=== PATIENT | male | born 1990 | race Caucasian/White ===

== ENCOUNTER 2019-05-01 10:53 | Emergency (ER) | payer OTHER, SELFPAY ==
[2019-05-01 10:55] VITALS: BP 138/75; PULSE 60; RESP 14; TEMP 36.9; O2SAT 98
--- NOTE | 2019-05-01 11:26 | ED_ITS ---
HPI - Extremity Injury (Upper) <PIERRE Treadwell - Last Filed: 05/01/19 12:01> General Chief Complaint: Extremity Injury, Upper Stated Complaint: broken collar bone Time Seen by Provider: 05/01/19 11:05 Source: patient Mode of arrival: Ambulatory Limitations: no limitations History of Present Illness HPI narrative: This is a 28-year-old male, nonsmoker, who presents to ED with significant other with known right clavicle fracture per x-ray test that was done at [facility] yesterday. Reports he was riding snowboard yesterday at [place] and when he turned 180 degree his snow boarder as got caught and fell forward and landed on his right shoulder. Patient denies any other injury including head or neck. Patient right dominant hand. He reports occasional numbness to whole right hand but denies decreased strength to right upper arm. Patient denies difficulty breathing at this time. He has been using sling on affected arm that was provided from [facility] and pain is well managed with [place] and Advil. Patient is here for consultation to orthopedists since he was informed that he needs a surgery last night. Related Data Home Medications Medication Instructions Recorded Confirmed hydrocodone-acetaminophen [[place]] 1 tab PO Q4-6H PRN 05/01/19 05/01/19 ibuprofen 200 mg PO PRN PRN 05/01/19 05/01/19 multivitamin 1 tab PO DAILY 05/01/19 05/01/19 Allergies Allergy/AdvReac Type Severity Reaction Status Date / Time No Known Drug Allergies Allergy Verified 05/01/19 11:02 Review of Systems <PIERRE Treadwell - Last Filed: 05/01/19 12:01> Review of Systems Narrative: General: Denies fever, chills, fatigue, malaise, sweats. HEENT: Denies sinus pain, ear pain, sore throat, difficulty swallowing, dizziness. Respiratory: Denies dyspnea, cough, wheezing, hemoptysis, sputum. Cardiovascular: Denies chest pain, palpitations, orthopnea, edema. Gastrointestinal: Denies nausea, vomiting, abdominal pain, diarrhea, constipation, melena. : Denies dysuria, frequency, incontinence, hematuria, urinary retention. Musculoskeletal: See HPI Skin: Denies rash, skin lesions, or other. Neurologic: Denies weakness, headache, numbness, change in speech, confusion, seizures, incoordination. Psychiatric: No concerning psychosocial issues. 12-point review of systems is negative except for those stated above. Patient History <PIERRE Treadwell - Last Filed: 05/01/19 12:01> Medical History No significant past medical history (Acute) Surgical History No pertinent past surgical history (Acute) Social History Smoking Status: Never smoker Smoking Status: Never smoker alcohol intake frequency: 0-2 drinks per day Substance Use Type: does not use Exam <PIERRE Treadwell - Last Filed: 05/01/19 12:01> Narrative Exam Narrative: General appearance: well developed, well nourished, in no acute distress. Head: normocephalic, atraumatic, no scalp lesions, non-tender. ENT: Hearing grossly intact. Nose without bleeding, purulent discharge or deviation. Mucous membrane moist, no mucosal lesion. Throat without erythema, tonsillar hypertrophy or exudate. Uvula in midline, airway patent. Neck/Thyroid: neck supple, full range of motion, no visible masses or meningeal signs. No JVD, non-tender without lymphadenopathy. Skin: no suspicious rashes, lesions over visible areas. Warm and dry and appropriate color for ethnicity. Heart: no clubbing, no cyanosis, no edema. S1 and S2 normal. RRR w/o murmurs, clicks, or bruits. Lungs: Breathing even and unlabored. No stridor. No accessory muscles used. Able to speak in full sentences. Chest: normal shape and expansion. Abdomen: non-obese, non-distended. Neurologic: alert and oriented. Cognitive exam, MARBLE INSTALLER and PNS grossly intact on informal exam. Psych: good eye contact, normal affect. Initial Vital Signs Initial Vital Signs: Vital Signs Temperature 98.5 F 05/01/19 10:55 Pulse Rate 60 05/01/19 10:55 Respiratory Rate 14 05/01/19 10:55 Blood Pressure 138/75 05/01/19 10:55 Pulse Oximetry 98 05/01/19 10:55 Extrem Right upper extremity: shoulder/upper arm Details: abnormal to inspection Details: clavicle deformity (edema), tenderness Location: of the clavicle and swelling Location: of the clavicle; no abrasions, no lacerations, no ecchymosis and no unusual warmth and hand Left upper extremity: normal to inspection, full ROM, normal capillary refill and hand Details: normal to inspection, neuromotor exam normal Details: wrist extension normal, thumb opposition normal, thumb IP flexion normal, thumb ADduction normal and fingers 2-5 ABduction normal, neurosensory exam normal Details: radial nerve sensory function normal, vascular exam Details: radial pulse present, normal ROM of fingers and no swelling <Mumtaz Davila MD - Last Filed: 05/02/19 08:19> Initial Vital Signs Initial Vital Signs: Vital Signs Temperature 98.5 F 05/01/19 10:55 Pulse Rate 60 05/01/19 10:55 Respiratory Rate 14 05/01/19 10:55 Blood Pressure 138/75 05/01/19 10:55 Pulse Oximetry 98 05/01/19 10:55 Scores <PIERRE Treadwell - Last Filed: 05/01/19 12:01> GCS [place] coma scale eye opening: Spontaneous Dara coma scale verbal response: Orientated Dara coma scale motor response: Obey commands [place] coma scale total score: 15 Course <PIERRE Treadwell - Last Filed: 05/01/19 12:01> Vital Signs Vital signs: Vital Signs - 8 hr 05/01/19 10:55 Temperature 98.5 F Pulse Rate 60 Respiratory Rate 14 Blood Pressure 138/75 Pulse Oximetry 98 <Mumtaz Davila MD - Last Filed: 05/02/19 08:19> Vital Signs Vital signs: Vital Signs - 8 hr 05/01/19 10:55 Temperature 98.5 F Pulse Rate 60 Respiratory Rate 14 Blood Pressure 138/75 Pulse Oximetry 98 MDM - Extremity Injury (Upper) <PIERRE Treadwell - Last Filed: 05/01/19 12:01> Differential Diagnosis Differential diagnosis: Likely fracture of clavicle Medical Records Attestation: I reviewed the patient's medical records. [facility] Narrative Medical decision making narrative: This is a 28-year-old male who had injured his right clavicle yesterday during snowboarding and evaluated initially at [facility] and brought CD shoulder and clavicle x-ray images. Patient has non open right clavicle fracture into 3 pieces. Bilateral upper extremity strength is equal, intact sensation. Patient denies other injuries to elbow, wrist or hand. Patient was able to move all fingers, flex and extend wrist and elbow without pain. Patient already has sling on affected arm that was provided from [facility] and has been using [place] and Advil for discomfort which has been managing his pain adequately. Dr. Hines consulted over the phone and was advised the patient of range of motion exercise on elbow and wrist at least couple of times a day after removing a sling and to follow-up with [facility]. Patient verbalized understanding and agrees with treatment plan. Discharge Plan Departure Patient Disposition: Home Clinical Impression: Displaced fracture of shaft of right clavicle, initial encounter for closed fracture Discharge Date/Time: 05/01/19 12:08 Activity Restrictions/Additional Instructions: You have been diagnosed with [ known right clavicle fracture, displaced]. What to do: *Take your medications as directed. Continue with her current pain management regimen. Please do range of motion exercise on your elbow and wrist at least couple of times a day after removing the sling. *Follow up with your primary care provider and [facility] orthopedist in 2-3 days, call for an appointment. Let them know you were seen in the ED and that we asked you to be seen in follow up. *Return to ED if you have any new, worsening, or concerning symptoms, such as [difficulty breathing, chest pain, weakness/numbness to right extremity or any acute concerns]. Prescriptions: No Action multivitamin Tablet 1 tab PO DAILY RF: 0 hydrocodone-acetaminophen [[place]] 10-325 mg Tablet 1 tab PO Q4-6H PRN (Reason: pain) RF: 0 ibuprofen 200 mg Tablet 200 mg PO PRN PRN (Reason: pain) RF: 0 Referrals: [facility] [Provider Group] [facility] [Outside]
[2019-05-01 12:05] VITALS: BP 134/85; PULSE 82; RESP 18; O2SAT 99
== END 2019-05-01 12:08 | disposition home or self-care (01) ==
PROVIDERS: Emergency Provider Nurse Practitioner Family
DX: S42.021A Displaced fracture of shaft of right clavicle, initial encounter for closed fracture (principal)
CPT/HCPCS: 99282

== ENCOUNTER → 2019-05-05 09:59 | Outpatient (CLI) | payer OTHER, SELFPAY ==
[2019-05-05 10:47] LABS: Add Manual Diff / Slide Review NO; Basophils Absolute Auto 0 /uL (0-100); Basophils Percent Auto 0.6 % (0-2); Eosinophils Absolute Auto 200 /uL (0-450); Eosinophils Percent Auto 3.2 % (2-4); Hematocrit 41.9 % (41-53); Hemoglobin 14.8 g/dL (13.5-17.5); Lymphocytes Absolute Auto 1600 /uL (1100-4500); Lymphocytes Percent Auto 29.6 % (25-40); Mean Corpuscular HGB Conc 35.4 % (30-36); Mean Corpuscular Hemoglobin 33.5 PG (26-34); Mean Corpuscular Volume 94.5 fL (80-100); Monocytes Absolute Auto 500 /uL (0-900); Monocytes Percent Auto 10.1 % (3-14); Neutrophils Absolute Auto 3000 /uL (1500-7000); Neutrophils Percent Auto 56.5 % (50-75); Platelet Count 287 X10^3/uL (150-400); Red Blood Cell Count 4.43 X10^6/uL (4.5-5.9); Red Cell Distribution Width 12.5 % (11.6-14.8); White Blood Cell Count 5.3 X10^3/uL (4.5-11.0)
== END ==
PROVIDERS: Referring Provider Orthopaedic Surgery Adult Reconstructive Orthopaedic Surgery; Visit Provider Orthopaedic Surgery Adult Reconstructive Orthopaedic Surgery
DX: Z01.818 Encounter for other preprocedural examination (principal); Z01.812 Encounter for preprocedural laboratory examination
CPT/HCPCS: 36415; 85025; 93005

== ENCOUNTER 2019-05-06 13:45 | Day surgery (SDC) | payer OTHER, SELFPAY ==
[2019-05-05 13:44] VITALS: BMI 33.7
[2019-05-06] VITALS (9 sets, daily range): BP systolic 120–134; BP diastolic 74–91; PULSE 76–95; RESP 12–17; TEMP 36.7; O2SAT 94–98; BMI 33.7
--- NOTE | 2019-05-06 | DI.RAD.S_ITS ---
PROCEDURE: XR CLAVICLE RT INDICATIONS: ORIF CLAVICULAR FRACTURE REPAIR TECHNIQUE: 2 views of the clavicle were acquired. COMPARISON: [facility], CR, XR CHEST 1V, 05/06/2019, 19:10. Outside Facility, RG, XR SHOULDER 3V RIGHT, 04/30/2019, 19:09. Outside Facility, RG, XR CLAVICLE 2V RIGHT, 04/30/2019, 19:02. FINDINGS: Bones: No previously unidentified fractures or dislocations. No suspicious bony lesions. Normal alignment established after ORIF of a right clavicular fracture. Soft tissues: No suspicious soft tissue calcifications. IMPRESSION: Normal alignment established after ORIF right clavicle fracture. Dictated by: Jan Medina M.D. on 05/07/2019 at 8:27 Approved by: Jan Medina M.D. on 05/07/2019 at 8:30
--- NOTE | 2019-05-06 | DI.RAD.S_ITS ---
PROCEDURE: XR CHEST 1V INDICATIONS: post-op clavicle, check for pneumo TECHNIQUE: One view of the chest was acquired. COMPARISON: None. FINDINGS: Surgical changes and devices: None. Lungs and pleura: Bilateral linear atelectasis. No pleural effusions or pneumothorax. Mediastinum: Mediastinal contours appear normal. Heart size is normal. Bones and chest wall: No suspicious bony lesions. Overlying soft tissues appear unremarkable. IMPRESSION: Bilateral linear atelectasis. No pneumothorax identified. Dictated by: Bk Panchal M.D. on 05/06/2019 at 19:37 Approved by: Bk Panchal M.D. on 05/06/2019 at 19:38
[2019-05-06] MEDS: LACTATED RINGERS 1,000 ML 42 ML IV ×2 (14:57→19:44)
--- NOTE | 2019-05-06 16:44 | PM.PREOP ---
Pre-operative Note Interval Note History & Physical reviewed/Exam performed by Physician: Yes Changes to H&P: No H&P completed within 30 days and has changed as indicated here:: Plan for ORIF R clavicle fracture
[2019-05-06] MEDS: CEFAZOLIN 2 GM/100 ML FROZ.PIGGY IV (16:53)
--- NOTE | 2019-05-06 17:34 | SUR.OPER ---
Beach chair with Maquet shoulder positioner. Lower body on padded OR bed. Head in foam padded head cradle, secured with straps. Non-operative arm secured on armboard at side. Pillow under knees. Safety belt at thigh. Cloth tape over blanket over lower legs.
[2019-05-06] MEDS: BUPIVACAINE 0.5% W/ EPI (PF) 10 ML VIAL 30 ML INJ (17:46)
--- NOTE | 2019-05-06 18:51 | PM.OP.1 ---
Operative Date/Time/Diagnoses Date of procedure: 05/06/19 Time of procedure: 18:51 Pre-op diagnosis: right clavicle fracture Post-op diagnosis: same Procedure & Clinicians Procedure: ORIF R clavicle Same procedure as scheduled: Yes Indications: 100% displaced comminuted clavicle fracture Surgeon: Chester Hines Marine Steam Fitter Helper: Elijah Perez Anesthesia Type: General Operative Notes Findings: Comminuted 4-part midshaft clavicle fracture with 100% displacement Closure Type: primary Specimen(s): none sent Prosthetic devices, grafts, tissues, transplants, or devices: [employer] EVOS 5 hole right inferior distal clavicle plate 4x locking 2.7 screws 1x cortical 2.7 screws 4x locking 3.5 screws Estimated Blood Loss (mL): 100 Blood products transfused: none Procedure in detail: Patient was met in the preoperative holding area where the site and side of surgery were marked by MD. All last minute questions were answered. Patient was then brought back in the operating room where he was placed onto the operating room table and induced under general anesthesia. Patient was then brought up into a beach chair position and the right upper extremity was prepped and draped in the normal sterile fashion. A operative time-out was performed verifying the site and side of surgery as well as the name of the patient. A 7 cm curvilinear incision over the right clavicle was made using 10. Blade. Electrocautery dissection was used down to the level of the clavicle attempts at preserving the supraclavicular nerves were made. Anterior musculature was removed from the clavicle using a wood handle elevator. The fracture site itself was cleaned using a 15. Blade and a curette along with water. Several different plates were attempted however the best fit was a right distal inferior 5 hole clavicle plate. Due to the comminution at the fracture site abscess stability was not able to be achieved and we progress with a bridging construct. The plate was clamped to the distal and proximal section of the clavicle using lobster claw clamps. Two 7 screws in the distal aspect of the plate were 1st drilled allowing this portion of the plate to be stuck down to the clavicle. Once this was achieved we moved to proximal portion of the plate and placed a 3 5 locking screw into the plate at the level of 1 of the clamps which had good apposition to the bone. At this point fluoroscopy was used to verify length of the clavicle as well as overall reduction. Placed several more distal clavicle 2.7 screws these were all locking screws. Then turned our attention to the proximal side and placed 3 more 3.5 locking screws. I then took the arm through range of motion while observing the clavicle. The fracture site did not show any gapping. Final fluoroscopic images were obtained verifying plate position as well as fracture reduction. The wound was irrigated with normal saline local injection was then performed and soft tissues closed over the plate using a 1. Vicryl in interrupted fashion followed by 2 0 Vicryl in the subcutaneous tissue followed by running strata fix suture. Sterile dressings were then placed. Patient was brought to PACU in stable condition. Complications: none Post-operative Condition: stable Disposition: PACU Plan for aftercare: chest x-ray in PACU to confirm no pneumothroax. mague TATUM for comfort. RTC in 10-14 days for wound check and suture removal. DC from PACU when recovered from anesthesia.
[2019-05-06] MEDS: fentaNYL 100 MCG/2 ML INJ IV (19:29)
[2019-05-06] MEDS: ONDANSETRON 4 MG/2 ML INJ IV (19:30)
[2019-05-06] MEDS: OXYCODONE/ACETAMINOPHEN 5/325 TABLET 1 TAB PO ×2 (19:30→20:00)
--- NOTE | 2019-05-06 20:34 | SUR.PHASEII ---
Patient home with all belongings with significant other. Stable on discharge.
== END 2019-05-06 20:25 | disposition home or self-care (01) ==
PROVIDERS: Referring Provider Orthopaedic Surgery Adult Reconstructive Orthopaedic Surgery; Visit Provider Orthopaedic Surgery Adult Reconstructive Orthopaedic Surgery
PROC: 0PS904Z Reposition Right Clavicle with Internal Fixation Device, Open Approach (ICD-10-PCS; CPT 23515; principal; 2019-05-06 15:45)
DX: S42.001A Fracture of unspecified part of right clavicle, initial encounter for closed fracture (principal); Y93.23 Activity, snow (alpine) (downhill) skiing, snowboarding, sledding, tobogganing and snow tubing
CPT/HCPCS: 23515; 71045; 73000; 76000; J0690; J1100; J1170; J2250; J2405; J2704; J3010